=== PATIENT | female | born 1960 | race Caucasian/White ===

== ENCOUNTER 2016-05-12 13:20 | Emergency (ER) | payer SELFPAY ==
[2016-05-12 14:01] VITALS: BP 149/66; PULSE 86; TEMP 98.4; BMI 32.3
--- NOTE | 2016-05-12 14:04 | EDPRACDOC ---
- General Information Chief Complaint: Flu-Like Symptoms Stated Complaint: COUGH Time Seen by Provider: 05/12/16 13:58 Mode Of Arrival: Car Home Medications: Home Medications Ibuprofen Tablet [Motrin] 800 mg PO TID 10/10/15 Hydrocodone Bit/Homatropine [Hycodan Syrup] 5 ml PO Q6 PRN #120 syrup 05/12/16 Allergies/Adverse Reactions: Allergies Allergy/AdvReac Type Severity Reaction Status Date / Time Penicillins Allergy Hives* Verified 01/22/16 13:22 Sulfa (Sulfonamide Allergy Unknown/See Verified 01/22/16 13:22 Antibiotics) Comments [Sulfa(Sulfonamide Antibiotics)] - History of Present Illness Onset: 2 DAYS HPI: PT COMPLAINS OF NON-PROD COUGH, HEADACHE, EYES WATERING X 2 DAYS, NO FEVER OR CHILLS, NO N/V/D. USING OTC MEDS WITHOUT RELIEF. Current Symptoms: Reports: Cough, Headache. Denies: Earache, Fever, Nasal Symptoms, Sore Throat, Myalgia, Nausea, Vomiting Shortness of Breath: None Cough: Reports: Non-productive Rhinorrhea: Reports: Clear Ear Symptoms: Reports: None Fever Severity/Quality: Reports: no fever Oral Intake: Normal Urinary Output: Normal Relevant History of: None Associated Signs & Symptoms:: Reports: Cough, Headache, Nasal Symptoms. Denies : Earache, Fever, Sore Throat, Nausea, Vomiting, Diarrhea, Myalgia, Rash, Pain with head movement, AMS ED Past Medical History - History Reviewed Yes Nurses notes reviewed and agree except as marked - Patient Medical History GI/ History: Reports: Kidney Stones (Left side current) Psychological History: Reports: Anxiety, Bipolar Disorder. Denies: Depression Systemic History: Denies: Cancer Additional Past Medical History: CHRONIC BACK PAIN - Family Medical History Reports: Hypertension (dad), Diabetes (mother, grandparents), Cancer (mother melanoma). Denies: Stroke, Cardiac Disorders - Social Medical History Smoking Status: Former smoker ETOH: None Substance Abuse: None EDM Review of Systems - Review of Systems Constitutional: negative: Chills, Fever Eyes: Discharge (WATERY). negative: Blurred Vision, Double Vision Ears: negative: Drainage, Pain Throat: negative: Pain Nose: Congestion. negative: Discharge Respiratory: Cough. negative: Shortness of Breath, Wheezing Gastrointestinal: negative: Diarrhea, Nausea, Pain, Vomiting Genitourinary: negative: Dysuria, Frequency Neurological: Headache Musculoskeletal: No Symptoms Reported - Physical Exam Constitutional: Alert (Awake), No apparent distress Oriented to: Time, Person, Place Last recorded Vital Signs: Last Vital Signs Temp 98.4 F 05/12/16 13:58 Pulse 86 05/12/16 13:58 Resp 20 05/12/16 13:58 BP 149/66 05/12/16 13:58 Pulse Ox 97 05/12/16 13:58 Oxygen Pulse Oxygen Saturation 97 O2 Device Room Air Oxygen Flow Rate Fraction of Inspired Oxygen ( FIO2) - HEENT Head: Normal ( normocephalic) Eye Exam: Normal (PERRL, EOMI, Sclera white) Oropharynx: Normal (Pharynx:Moist without exudate,Gums-no swelling) Tympanic Membrane: Dull ENT EAC: Normal TMJ: Normal Nose: No Symptoms Reported (septum midline) Neck: Normal (FROM, trachea at midline) - Respiratory/Cardiovascular Respiratory: Normal - CTA (BBS clear to auscultation without adventitious sounds ) Cardiovascular: Normal (RRR without murmur, gallop or rub) - Integumentary Skin: Normal, Warm, Dry Lymphatics: Normal (no adenopathy) - Neurologic Memory Impaired: Normal Motor Function: Normal (Normal tone, Pulses 2+ No cyanosis or edema, FROM) Cranial Nerve: Normal (CN II-X11 intact sensation, strength 5/5) Cerebellar: Normal Mood Description: Normal Perception: Normal - Differential Diagnosis Allergic Rhinitis, Bronchitis, Pneumonia, Sinusitis, URI Decision Time to Discharge: 14:03 - Departure Disposition: Home Condition: Stable Final Diagnosis: Acute upper respiratory infection Instructions: Upper Respiratory Infection (ED) Education/Counseling Given To: Patient Education/Counseling Given Regarding: Diagnosis, Treatment, Prognosis, Follow Up Referrals: [facility] [NonStaff] - One Week Prescriptions: Hydrocodone Bit/Homatropine [Hycodan Syrup] 5 ml PO Q6 PRN #120 syrup PRN Reason: Cough Additional Instructions: Rest, drink plenty of fluids, use Tylenol every 4 hours and Motrin every 6 hours as needed for pain or fever, return to the ED for any worsening symptoms or concerns.
== END 2016-05-12 14:12 | disposition home or self-care (01) ==
LOC: EDMC 13:20
DX: J06.9 Acute upper respiratory infection, unspecified (principal)
CPT/HCPCS: 99282

== ENCOUNTER 2016-05-19 14:37 | Emergency (ER) | payer SELFPAY ==
[2016-05-19 14:37] VITALS: BMI 32.3
[2016-05-19 14:52] VITALS: BP 159/81; PULSE 86; TEMP 98
--- NOTE | 2016-05-19 14:53 | EDPRACDOC ---
- General Information Chief Complaint: Earache Stated Complaint: EAR PAIN Time Seen by Provider: 05/19/16 14:45 Information Source: Patient Mode of Arrival: Car Home Medications: Home Medications Cefdinir [Omnicef] 300 mg PO BID #20 capsule 05/19/16 Methylprednisolone [Medrol] 4 mg PO DAILY #1 tab.ds.pk 05/19/16 Allergies/Adverse Reactions: Allergies Allergy/AdvReac Type Severity Reaction Status Date / Time Penicillins Allergy Hives* Verified 01/22/16 13:22 Sulfa (Sulfonamide Allergy Unknown/See Verified 01/22/16 13:22 Antibiotics) Comments [Sulfa(Sulfonamide Antibiotics)] - History of Present Illness Onset: LAST WEEK HPI: PT STATES SHE HAS HAD COUGH AND EAR PAIN FOR THE PAST WEEK. STATES SHE HAS HAD SOME FACIAL PAIN AND PRESSURE. DENIES FEVER, CHILLS, NAUSEA OR VOMITING. Location: left ear Context: Reports: URI Symptoms Recently Treated Ear Infection: Reports: No Pain Severity: Reports: Moderate Associated Signs & Symptoms: Reports: None ED Past Medical History - History Reviewed Yes Nurses notes reviewed and agree except as marked - Patient Medical History GI/ History: Reports: Kidney Stones (Left side current) Psychological History: Reports: Anxiety, Bipolar Disorder. Denies: Depression Systemic History: Denies: Cancer Additional Past Medical History: CHRONIC BACK PAIN - Family Medical History Reports: Hypertension (dad), Diabetes (mother, grandparents), Cancer (mother melanoma). Denies: Stroke, Cardiac Disorders - Social Medical History Smoking Status: Former smoker EDM Review of Systems - Review of Systems ROS Negative Except as Marked: Yes All systems reviewed and were negative except as marked - Physical Exam Constitutional: Alert Oriented to: Time, Person, Place Last recorded Vital Signs: Last Vital Signs Temp 98 F 05/19/16 14:44 Pulse 86 05/19/16 14:44 Resp 18 05/19/16 14:44 BP 159/81 05/19/16 14:44 Pulse Ox 97 05/19/16 14:44 Oxygen Pulse Oxygen Saturation 97 O2 Device Oxygen Flow Rate Fraction of Inspired Oxygen ( FIO2) - HEENT Head: Normal ( normocephalic) Eye Exam: Normal (PERRL, EOMI, Sclera white) Oropharynx: Normal (Pharynx:Moist without exudate,Gums-no swelling) Tympanic Membrane: Bulging, Dull Nose: No Symptoms Reported (septum midline) Neck: Normal (FROM, trachea at midline) - Respiratory/Cardiovascular Respiratory: Normal - CTA (BBS clear to auscultation without adventitious sounds ) Cardiovascular: Normal (RRR without murmur, gallop or rub) - GI Auscultation: Normal (NABS) Palpation: Normal (Soft,No rebound or guarding, non distended) Tenderness: Non tender Rodriguez's Sign: Negative Rectal Exam: Deferred - Musculoskeletal Back: Normal (Non-Tender) Extremities: Normal (Normal tone, Pulses 2+ No cyanosis or edema, FROM) - Integumentary Skin: Normal, Warm, Dry Lymphatics: Normal (no adenopathy) - Neurologic Memory Impaired: Normal Motor Function: Normal (Normal tone, Pulses 2+ No cyanosis or edema, FROM) Cranial Nerve: Normal (CN II-X11 intact sensation, strength 5/5) Cerebellar: Normal Mood Description: Normal Perception: Normal - Differential Diagnosis Otitis Media, Sinusitis Decision Time to Discharge: 14:52 - Departure Disposition: Home Condition: Stable Final Diagnosis: Sinusitis Qualifiers: Sinusitis location: frontal Chronicity: acute Recurrence: non-recurrent Qualified Code(s): J01.10 - Acute frontal sinusitis, unspecified Instructions: Sinusitis (ED) Education/Counseling Given To: Patient Education/Counseling Given Regarding: Diagnosis, Treatment, Prognosis, Follow Up Referrals: Aubrey King II, MD [Staff Physician] - One Week Prescriptions: Cefdinir [Omnicef] 300 mg PO BID #20 capsule Methylprednisolone [Medrol] 4 mg PO DAILY #1 tab.ds.pk Additional Instructions: INCREASE FLUID INTAKE. FOLLOW UP WITH PRIMARY CARE PROVIDER NEXT WEEK. TAKE ALL ANTIBIOTICS PRESCRIBED. RETURN TO THE ED FOR WORSENING SYMPTOMS OR CONCERNS.
== END 2016-05-19 15:03 | disposition home or self-care (01) ==
LOC: EDMC 14:37
DX: J01.10 Acute frontal sinusitis, unspecified (principal)
CPT/HCPCS: 99282